=== PATIENT | female | born 1940 ===

== ENCOUNTER 2016-11-02 11:55 | Outpatient (CLI) | payer MEDICARE ==
--- NOTE | 2016-11-02 13:30 | XRay Report ---
Chest 2 views: Compared to 10/11/16. History: Pneumonia, but material. Findings: Cardiomegaly. Trachea is midline. Mild pulmonary venous congestion. No consolidation or pleural effusion. Impression: Cardiomegaly with mild pulmonary venous congestion. No consolidation
== END 2016-11-02 11:56 | disposition home or self-care (01) ==
LOC: SPVIMAG 11:55
PROVIDERS: ATTEND Internal Medicine
DX: J15.9 Unspecified bacterial pneumonia (principal); I51.7 Cardiomegaly; I87.8 Other specified disorders of veins
CPT/HCPCS: 71020